=== PATIENT | female | born 1950 | race Caucasian/White ===

== ENCOUNTER 2017-01-16 10:13 | Emergency (ER) | payer BC ==
[~2017-01-16] VITALS: Wt 62.9 kg
[~2017-01-16 10:13] MED LIST: AMLO-218; ASPI-650; DOCU-144 PO; GLIP-95; HYDR-3498 PO; IRBE300T13; PIOG45TA6; SITA1TAB3; ZOF8 PO
[2017-01-16] MEDS ORDERED: ACETAMINOPHEN 325 MG TAB PO ONE (11:00)
--- NOTE | 2017-01-16 11:28 | RADRPT ---
PROCEDURE: XR Wrist. CLINICAL INDICATION: Trauma. TECHNIQUE: AP, lateral, navicular and oblique views of the right wrist were performed. COMPARISON: No prior studies are available for comparison. FINDINGS: The soft tissues and bony elements are normal. There are view is normal. IMPRESSION: 1. Normal for the right wrist with navicular view. Physician Wilson Date Time Electronically viewed and signed by Robert Connors Physician on 01/16/2017 11:28 JOSIAS/
[2017-01-16] MEDS ORDERED: ACET500C5 PO (11:33)
--- NOTE | 2017-02-09 10:24 | ERD ---
ER Documentation Chief Complaint Date/Time DATE: 02/09/17 TIME: 10:20 Chief Complaint RIGHT ARM PAIN FROM A FALL YESTERDAY. NO DEFORMITY NOTED. HPI 66-year-old female presents with right wrist pain after a fall on outstretched hand yesterday. She has restricted range of motion, bleeding or redness or weakness. ROS All systems reviewed and are negative except as per history of present illness. Medications Home Meds Active Scripts Acetaminophen* (Tylophen*) 500 Mg Capsule, 500 MG PO Q6H Y for PAIN, #15 TAB Prov:MARIANA LEE MD 01/16/17 Docusate Sodium* (Colace*) 100 Mg Capsule, 100 MG PO TID, #30 CAP Prov:MARIANA LEE MD 05/19/16 Ondansetron Hcl* (Zofran* ODT) 8 mg -ODT Tab.disper, 8 MG PO Q6 Y for NAUSEA AND /OR VOMITING, #8 TAB Prov:MARIANA LEE MD 05/19/16 Hydrocodone Bit-Acetaminophen* ([place]*) 5-325 Mg Tab, 1 TAB PO Q6 Y for PAIN, # 15 TAB Prov:MARIANA LEE MD 05/19/16 Reported Medications Amlodipine Besylate* (Norvasc*) 10 Mg Tablet 01/14/11 Irbesartan* (Avapro*) 300 Mg Tablet 01/14/11 Pioglitazone Hcl* (Actos*) 45 Mg Tablet 01/14/11 Glipizide* (Glipizide*) 10 Mg Tablet 01/14/11 Sitagliptin Phos-Metformin Hcl (Janumet) 1 Tab Tablet 01/14/11 Aspirin (Aspirin) 81 Mg Tablet 01/14/11 Allergies Allergies: Coded Allergies: atorvastatin (Verified Allergy, Mild, MUSCLE PAIN, 09/07/11) PMhx/Soc History of Surgery: Yes (RT FOOT 5-TOE AMPUTATION) Anesthesia Reaction: No Hx Neurological Disorder: No Hx Respiratory Disorders: No Hx Cardiac Disorders: Yes (HTN, HDL,"HEART PROBLEM") Hx Psychiatric Problems: No Hx Miscellaneous Medical Probl: Yes (DM) Hx Alcohol Use: No Hx Substance Use: No Hx Tobacco Use: No Smoking Status: Never smoker Physical Exam Physical Exam Const: [] Alert, [id number] per Head: Atraumatic Eyes: Normal Conjunctiva ENT: Normal External Ears, Nose and Mouth. Neck: Full range of motion..~ No meningismus. Resp: Clear to auscultation bilaterally Cardio: Regular rate and rhythm, no murmurs Abd: Soft, non tender, non distended. Normal bowel sounds Skin: No petechiae or rashes Back: No midline or flank tenderness Ext: No cyanosis, or edema. Tenderness in the right distal radius area and wrist joint with swelling. No appreciable snuffbox tenderness. No restricted range of motion weakness or bleeding or warmth.. No appreciable snuffbox tenderness. Neur: Awake and alert Psych: Normal Mood and Affect Results 24 hrs Current Medications Medications (Trade) Dose Ordered Sig/Sarah Route PRN Reason Start Time Stop Time Status Last Admin Dose Admin Acetaminophen (Tylenol Tab) 650 mg ONCE ONCE PO 01/16/17 11:00 01/16/17 11:01 DC 01/16/17 11:01 Procedures/MDM X-ray right wrist 3V Interpreted by me: Scaphoid: [Normal] Bones: [No fracture] Joints: [No dislocation] Foreign body: [None]. Impression-normal right wrist Patient placed in a right wrist Velcro brace. Patient was neurovascular intact in the brace. Patient presents with signs and symptoms of her right wrist sprain without current signs or symptoms of fracture, dislocation, navicular injury, neurologic deficit, ischemia. She will be treated with splint, anti- inflammatories instruction to follow-up with primary doctor possible orthopedist for pain later this week. She should return sooner for fevers, redness, new or worsening symptoms. Departure Diagnosis: Primary Impression: Right wrist sprain Encounter type: initial encounter Qualified Code: S63.501A - Right wrist sprain, initial encounter Patient Instructions: Wrist Sprain Referrals: OKSANA GRANADOS MD Additional Instructions: X RAY NORMAL. CHEQUE CON ORTHOPEDICO, DOCTOR PRIMARIO PARA MAS EVAUALUACON EN [place]OX[place] SEMANA. MARIANA LEE MD Feb 09, 2017 10:24
== END 2017-01-16 12:00 | disposition home or self-care (01) ==
LOC: FTE 10:13
DX: S63.501A Unspecified sprain of right wrist, initial encounter (principal); I10 Essential (primary) hypertension; E11.9 Type 2 diabetes mellitus without complications; W18.39XA Other fall on same level, initial encounter; Y92.9 Unspecified place or not applicable; Z79.82 Long term (current) use of aspirin; Z79.84 Long term (current) use of oral hypoglycemic drugs

== ENCOUNTER → 2017-02-28 | Outpatient (CLI) | payer BC ==
[~2017-02-28] MED LIST changes: +ACET500C5 PO
[2017-02-28 09:56] LABS: ADD SCAN DIFF NO
[2017-02-28 10:07] LABS: BASOPHILS % 0.4 % (0.0-2.0); EOSINOPHILS # 0.2 10^3/ul (0.0-0.5); EOSINOPHILS % 2.5 % (0.0-7.0); HEMATOCRIT 36.1 % (37.0-47.0); LYMPHOCYTES # 2.1 10^3/ul (0.8-2.9); LYMPHOCYTES % 29.3 % (15.0-51.0); MEAN CORPUSCULAR HEMOGLOBIN 28.2 pg (29.0-33.0); MEAN CORPUSCULAR HGB CONC 33.2 g/dl (32.0-37.0); MEAN CORPUSCULAR VOLUME 84.7 fl (82.0-101.0); MEAN PLATELET VOLUME 9.9 fl (7.4-10.4); MONOCYTE # 0.6 10^3/ul (0.3-0.9); MONOCYTES % 8.4 % (0.0-11.0); NEUTROPHIL # 4.2 10^3/ul (1.6-7.5); NEUTROPHILS % 59.1 % (39.0-77.0); PLATELET COUNT 253 10^3/UL (140-415); RED BLOOD COUNT 4.26 10^6/ul (4.20-5.40); WHITE BLOOD COUNT 7.1 10^3/ul (4.8-10.8)
[2017-02-28 10:29] LABS: ALBUMIN 4.8 g/dl (3.3-4.9); ALBUMIN/GLOBULIN RATIO 1.37; BILIRUBIN,INDIRECT 0.2 mg/dl (0-1.1); BILIRUBIN,TOTAL 0.2 mg/dl (0.2-1.3); CALCIUM 9.5 mg/dl (8.4-10.2); CHOL/HDL RATIO 4.3 RATIO; CREATININE 1.2 mg/dl (0.44-1.00); POTASSIUM 4.9 mmol/L (3.5-5.1); TOTAL PROTEIN 8.3 g/dl (6.1-8.1)
[2017-02-28 10:39] LABS: ADD UMIC YES; URINE BILIRUBIN (Dip) NEGATIVE (NEGATIVE); URINE BLOOD (Dip) TRACE (NEGATIVE); URINE COLOR LT. YELLOW (YELLOW); URINE GLUCOSE (Dip) NEGATIVE (NEGATIVE); URINE KETONES (Dip) NEGATIVE (NEGATIVE); URINE LEUKOCYTE ESTERASE (Dip) NEGATIVE (NEGATIVE); URINE NITRITE (Dip) NEGATIVE (NEGATIVE); URINE TOTAL PROTEIN (Dip) 2+ (NEGATIVE); URINE UROBILINOGEN (Dip) 0.2 E.U./dL (0.1-1.0)
[2017-02-28 10:46] LABS: BACTERIA,URINE MODERATE; URINE RBCS 0-2 /HPF (0)
[2017-02-28 10:59] LABS: THYROID STIMULATING HORMONE 4.19 MIU/L (0.465-4.680)
[2017-03-01 15:57] LABS: MICROALBUMIN 39.3 mg/dL
== END | disposition home or self-care (01) ==
LOC: LAB 09:16
PROVIDERS: ATTEND Internal Medicine
DX: E11.65 Type 2 diabetes mellitus with hyperglycemia (principal)
CPT/HCPCS: 80053; 80061; 81001; 81003; 82043; 83036; 84443; 85025

== ENCOUNTER → 2017-03-16 | Outpatient (CLI) | payer BC ==
[2017-03-16 16:39] LABS: POTASSIUM 4.6 mmol/L (3.5-5.1)
[2017-03-16 16:42] LABS: CREATININE 1.51 mg/dl (0.44-1.00)
== END | disposition home or self-care (01) ==
LOC: LAB 15:42
PROVIDERS: ATTEND Internal Medicine
DX: I10 Essential (primary) hypertension (principal)
CPT/HCPCS: 80048

== ENCOUNTER → 2017-10-06 | Outpatient (CLI) | payer BC ==
[2017-10-06 09:57] LABS: BASOPHILS % 0.7 % (0.0-2.0); EOSINOPHILS # 0.1 10^3/ul (0.0-0.5); EOSINOPHILS % 2.1 % (0.0-7.0); HEMATOCRIT 32.4 % (37.0-47.0); HEMOGLOBIN 10.9 g/dl (12.0-16.0); LYMPHOCYTES # 1.7 10^3/ul (0.8-2.9); LYMPHOCYTES % 27.8 % (15.0-51.0); MEAN CORPUSCULAR HEMOGLOBIN 28.7 pg (29.0-33.0); MEAN CORPUSCULAR HGB CONC 33.6 g/dl (32.0-37.0); MEAN CORPUSCULAR VOLUME 85.3 fl (82.0-101.0); MEAN PLATELET VOLUME 9.3 fl (7.4-10.4); MONOCYTE # 0.5 10^3/ul (0.3-0.9); MONOCYTES % 7.6 % (0.0-11.0); NEUTROPHIL # 3.7 10^3/ul (1.6-7.5); NEUTROPHILS % 61.3 % (39.0-77.0); PLATELET COUNT 267 10^3/UL (140-415); RED CELL DISTRIBUTION WIDTH 14.3 % (11.5-14.5); WHITE BLOOD COUNT 6.1 10^3/ul (4.8-10.8)
[2017-10-06 10:25] LABS: ALBUMIN 4.3 g/dl (3.3-4.9); ALBUMIN/GLOBULIN RATIO 1.26; BILIRUBIN,INDIRECT 0.2 mg/dl (0-1.1); BILIRUBIN,TOTAL 0.2 mg/dl (0.2-1.3); CREATININE 1.28 mg/dl (0.44-1.00); POTASSIUM 5.6 mmol/L (3.5-5.1); TOTAL PROTEIN 7.7 g/dl (6.1-8.1)
[2017-10-06 10:54] LABS: THYROID STIMULATING HORMONE 3.1 MIU/L (0.465-4.680)
== END | disposition home or self-care (01) ==
LOC: LAB 09:33
PROVIDERS: ATTEND Internal Medicine
DX: I12.9 Hypertensive chronic kidney disease with stage 1 through stage 4 chronic kidney disease, or unspecified chronic kidney disease (principal); N18.9 Chronic kidney disease, unspecified; E11.9 Type 2 diabetes mellitus without complications; E78.5 Hyperlipidemia, unspecified
CPT/HCPCS: 80053; 80061; 83036; 84439; 84443; 85025

== ENCOUNTER → 2018-01-15 | Outpatient (CLI) | END | disposition home or self-care (01) ==

== ENCOUNTER → 2018-11-23 | Outpatient (CLI) | payer BC ==
[~2018-11-23] MED LIST changes: -GLIP-95; +GLIP10TA14; -PIOG45TA6; +PIOG45TA9
--- NOTE | 2018-11-26 13:50 | RADRPT ---
Vent Rate: 96 bpm RR Interval: 0 msec [place] Interval: 164 msec QRS Duration: 78 msec QT Interval: 334 msec QTC Interval: 421 msec P-R-T [place]: 61 - 48 - 41 degrees Normal sinus rhythm Normal ECG Electronically Signed By: Davion Pham [id number]
== END | disposition home or self-care (01) ==
LOC: LAB 09:48
PROVIDERS: ATTEND Internal Medicine
DX: I10 Essential (primary) hypertension (principal); E11.8 Type 2 diabetes mellitus with unspecified complications; E78.00 Pure hypercholesterolemia, unspecified; K27.9 Peptic ulcer, site unspecified, unspecified as acute or chronic, without hemorrhage or perforation; M79.10 Myalgia, unspecified site
CPT/HCPCS: 81001; 82043; 82550; 82553; 84484; 93005

== ENCOUNTER → 2018-12-18 | Outpatient (CLI) | payer BC | END | disposition home or self-care (01) | LOC: LAB 15:48 | PROVIDERS: ATTEND Internal Medicine Pulmonary Disease | DX: N18.9 Chronic kidney disease, unspecified (principal) | CPT/HCPCS: 80048 ==

== ENCOUNTER 2019-01-11 09:22 | Day surgery (SDC) | payer BC ==
[2019-01-11] VITALS (30 sets, daily range): BP systolic 106–167; BP diastolic 62–88; PULSE 88–98; RESP 9–32; Ht 144.8 cm; Wt 65.3 kg
[~2019-01-11] VITALS: Ht 144.8 cm; Wt 65.3 kg
[2019-01-11] MEDS ORDERED: IRBE300T13 PO (10:20)
[2019-01-11] MEDS ORDERED: AMLO5TAB4 PO (10:21)
[2019-01-11] MEDS ORDERED: SITA1TAB5 PO (10:25)
[2019-01-11] MEDS ORDERED: ASPI81TA52 PO (10:26)
[2019-01-11] MEDS ORDERED: CRES5 PO (10:26)
[2019-01-11] MEDS ORDERED: PIOG45TA9 PO (10:26)
[2019-01-11] MEDS ORDERED: GLIM4TAB55 PO (10:28)
[2019-01-11] MEDS ORDERED: FENTAnyl 50 MCG/ML VIAL ONE (11:27)
[2019-01-11] MEDS ORDERED: MIDAZOLAM 1 MG/ML 2 ML INJ ONE (11:27)
[2019-01-11] MEDS ORDERED: LIDOCAINE 1% (MDV) 20 ML INJ ONE (11:27)
[2019-01-11] MEDS ORDERED: HEPARIN 1000 UNITS/ML 10 ML INJ ONE (11:36)
[2019-01-11] MEDS ORDERED: SOD CHLORIDE 0.9% 500 ML ONE (11:36)
[2019-01-11] MEDS ORDERED: CLOPIDOGREL 300 MG TAB ONE (12:08)
[2019-01-11] MEDS ORDERED: CLOPIDOGREL 75 MG TAB PO ONE (12:30)
[2019-01-11] MEDS ORDERED: LACTATED RINGER'S 1,000 ML IV SCH (13:30)
--- NOTE | 2019-01-11 13:40 | OPR ---
DATE OF OPERATION: 01/11/2019 PREOPERATIVE DIAGNOSIS: Failing right DP bypass. POSTOPERATIVE DIAGNOSIS: Failing right DP bypass. PROCEDURE PERFORMED: Abdominal aortogram, right lower extremity angiogram and percutaneous angioplas ty of the right superficial femoral and popliteal artery. SURGEON: Jailyn Regalado MD ANESTHESIA: Local with sedation. ESTIMATED BLOOD LOSS: Minimal. COMPLICATIONS: No intraprocedural complications. INDICATIONS: A 68-year-old diabetic, hypertensive woman with peripheral arterial disease. She has a right popliteal to dorsalis pedis bypass that was done several years ago by Dr. Davidson for gangrene of the foot. She had a TMA there remains well healed, but the bypass graft is patent. It actually l ooks good, but there is a severe stenosis in the superficial femoral artery proximal to the proximal anastomosis of the graft and I was worried that the graft was going to occlude if this stenosis progr esses. It is in the 60 to 80% range now and had been worsening, so I recommended going ahead and tavon ating this to salvage the bypass graft. PROCEDURE: The patient was brought to the pathology laboratory aides teacher, placed on the table in supine position. Left gr oin was prepped and draped in usual sterile fashion. Using ultrasound to identify the left common fe moral artery it was widely patent with no filling defects. I infiltrated over the left common femora l artery using 10 mL of 1% Xylocaine. Using micropuncture needle to enter the artery under ultrasoun d guidance, an 0.018 wire was inserted through the needle into the artery and a micropuncture sheath was advanced over the wire into the artery. I then advanced an 0.035 Bentson wire into the abdominal aorta, exchanged the micropuncture sheath for a 5-Portuguese sheath over the wire and then advanced a ri m catheter into the infrarenal aorta. Initially I used CO2 angiography as I did a CO2 angiogram of t he infrarenal aorta and then I advanced the catheter up and over the bifurcation and into the right S FA for further angiography down the right lower extremity. FINDINGS OF ANGIOGRAPHY: The infrarenal aorta was widely patent. The common, superficial and profun da femoral arteries bilaterally are patent. On the right, the superficial femoral artery is patent a nd then the more distal segment had sort of diffuse disease in the distal SFA and the proximal poplit eal. There is 1 area of focal stenosis that is greater than 70%. The bypass graft comes off the bel ow knee pop and the popliteal artery from the knee down is good caliber and patent. The bypass graft , comes off the popliteal artery and is patent down to the dorsalis pedis with patent distal anastomo sis and good runoff into the foot. The peroneal artery is patent down to the ankle, posterior tibial and anterior tibial arteries are completely occluded and they do not reconstitute. So, I decided to go ahead and treat this severe stenosis in the superficial femoral and popliteal artery, so I advanc ed the 0.035 Advantage wire down through the area of stenosis and then to the below knee popliteal ar jose alejandro and then exchanged the 5-Portuguese sheath for a 6-Portuguese 45 cm [place] Destination sheath over the wire. I gave the patient 5000 units of heparin intravenously. I then treated the popliteal artery from the knee up in the distal SFA with a 5 mm x 20 cm balloon to 10 atmospheres with a 2 minute infl ation and completion angiography showed no residual stenosis in the SFA or pop. They are both widely patent with good brisk flow into the foot through that bypass graft which was wide open. I was happy with the result. I pulled the catheter sheaths and wires back into the left external iliac artery, I did a completion groin shot of the left that showed the puncture site was in the common femoral edvin ry. I then used a 6-Portuguese Angio-Seal to close the left groin puncture site with good hemostasis. S terile dressing was applied. I examined the right foot. There is a 3+ graft pulse and the foot was warm and well perfused and I was happy with the result. We are going to keep her on Plavix for 3 mons and will give her a dose in the recovery room and I will see her back in the [facility] next week with a followup arterial duplex. Dictated By: JAILYN RAMÍREZ/MARQUES Conf#: [id number] DID#: [id number] CC: FAITH CORDOBA MD;*EndCC*
--- NOTE | 2019-01-11 17:55 | RADRPT ---
Vent Rate: 93 bpm RR Interval: 0 msec [place] Interval: 192 msec QRS Duration: 80 msec QT Interval: 336 msec QTC Interval: 417 msec P-R-T [place]: 60 - 38 - 35 degrees Normal sinus rhythm Normal ECG Electronically Signed By: Davion Pham
== END 2019-01-11 16:30 | disposition home or self-care (01) ==
LOC: SDS 09:22
PROVIDERS: ATTEND Surgery Vascular Surgery
DX: I70.301 Unspecified atherosclerosis of unspecified type of bypass graft(s) of the extremities, right leg (principal); I73.9 Peripheral vascular disease, unspecified; I10 Essential (primary) hypertension; E11.9 Type 2 diabetes mellitus without complications
CPT/HCPCS: 37224; 71045; 75630; 80048; 81001; 82962; 85025; 85610; 85730; 93005; C1725; C1760; C1769; C1887; C1894; J1644; J2250; J3010; J7040

== ENCOUNTER → 2019-04-19 | Outpatient (CLI) | payer BC ==
[~2019-04-19] MED LIST changes: -ACET500C5 PO; -AMLO-218; +AMLO5TAB4 PO; -ASPI-650; +ASPI81TA52 PO; +CRES5 PO; -DOCU-144 PO; +GLIM4TAB55 PO; -GLIP10TA14; -HYDR-3498 PO; -IRBE300T13; +IRBE300T13 PO; -PIOG45TA9; +PIOG45TA9 PO; -SITA1TAB3; +SITA1TAB5 PO; -ZOF8 PO
== END | disposition home or self-care (01) ==
LOC: LAB 09:34
PROVIDERS: ATTEND Internal Medicine
DX: I10 Essential (primary) hypertension (principal); E11.9 Type 2 diabetes mellitus without complications; E78.00 Pure hypercholesterolemia, unspecified
CPT/HCPCS: 80053; 80061; 83036; 84443; 85025

== ENCOUNTER → 2019-06-27 | Outpatient (CLI) | payer BC ==
[~2019-06-27] MED LIST changes: +AMLO-147 PO; +OMEP20CA16 PO
== END | disposition home or self-care (01) ==
LOC: LAB 09:45
PROVIDERS: ATTEND Internal Medicine
DX: Z01.818 Encounter for other preprocedural examination (principal); E11.22 Type 2 diabetes mellitus with diabetic chronic kidney disease; I12.9 Hypertensive chronic kidney disease with stage 1 through stage 4 chronic kidney disease, or unspecified chronic kidney disease; N18.9 Chronic kidney disease, unspecified; I73.9 Peripheral vascular disease, unspecified
CPT/HCPCS: 71046; 80053; 81001; 83036; 85025; 85610; 85730; 87086; 93005

== ENCOUNTER 2019-07-03 06:05 | Day surgery (SDC) | payer BC ==
[~2019-07-03] VITALS: Ht 144.8 cm; Wt 65.0 kg
[2019-07-03] VITALS (14 sets, daily range): BP systolic 104–177; BP diastolic 48–70; PULSE 90–100; RESP 12–25; Ht 144.8 cm; Wt 65.0 kg
[~2019-07-03 06:05] MED LIST changes: +ACETAMINOPHEN 500 MG TAB PO ONE
[2019-07-03] MEDS ORDERED: KETOROLAC 15 MG INJ IV PRN (07:30)
[2019-07-03] MEDS ORDERED: FENTAnyl 50 MCG/ML VIAL IV PRN ×2 (07:30)
[2019-07-03] MEDS ORDERED: morphine 2 MG INJ IV PRN ×2 (07:30)
[2019-07-03] MEDS ORDERED: HYDROmorphONE 1 MG/5 ML IV SYRINGE IV PRN ×3 (07:30)
[2019-07-03] MEDS ORDERED: LABETALOL HCL 20MG INJ IV PRN (07:30)
[2019-07-03] MEDS ORDERED: ONDANSETRON 4 MG INJ IV PRN (07:30)
[2019-07-03] MEDS ORDERED: OXYCODONE/ACETAMINOPHEN (5/325) TAB PO PRN ×2 (07:30)
[2019-07-03] MEDS ORDERED: hydrALAzine 20 MG INJ IV PRN (07:30)
[2019-07-03] MEDS ORDERED: LEVALBUTEROL (NEB) 0.63 MG/3 ML AMP HHN PRN (07:30)
[2019-07-03] MEDS ORDERED: EPHEDrine 25 MG/5 ML SYG IV PRN (07:30)
[2019-07-03] MEDS ORDERED: ATROPINE 1 MG/10 ML SYRINGE IV PRN (07:30)
[2019-07-03] MEDS ORDERED: ALBUTEROL 0.083% (NEB) 2.5 MG/3 ML AMP HHN PRN (07:30)
[2019-07-03] MEDS ORDERED: DIPHENHYDRAMINE 50 MG INJ IV PRN (07:30)
[2019-07-03] MEDS ORDERED: LIDOCAINE 2% (SDV) 5 ML INJ ONE (07:37)
[2019-07-03] MEDS ORDERED: CEFAZOLIN 1 GM INJ ONE (07:37)
[2019-07-03] MEDS ORDERED: PROPOFOL 40 ML ONE (07:37)
[2019-07-03] MEDS ORDERED: MIDAZOLAM 1 MG/ML 2 ML INJ ONE (07:38)
[2019-07-03] MEDS ORDERED: FENTAnyl 50 MCG/ML VIAL ONE (07:38)
[2019-07-03] MEDS ORDERED: METOCLOPRAMIDE 10 MG INJ ONE (07:38)
[2019-07-03] MEDS ORDERED: LIDOCAINE 1% (MPF) 30 ML INJ ONE (07:51)
[2019-07-03] MEDS ORDERED: POLYMYXIN/BACITRACIN 1L IRRIG ONE (07:51)
[2019-07-03] MEDS ORDERED: PHENYLephrine (100 MCG/ML) 10ML SYG ONE (08:09)
[2019-07-03] MEDS ORDERED: CEFAZOLIN 2 GM/50 ML (PMX) 50 ML IVPB ONE (10:30)
== END 2019-07-03 10:24 | disposition home or self-care (01) ==
LOC: SDS 06:05
PROVIDERS: ATTEND Podiatrist Foot & Ankle Surgery
DX: E11.621 Type 2 diabetes mellitus with foot ulcer (principal); Z79.82 Long term (current) use of aspirin; I73.9 Peripheral vascular disease, unspecified
CPT/HCPCS: 28825; 80048; 82962; 87070; 87102; 87116; 88304; 88311; J0690; J2250; J2370; J2765; J3010